=== PATIENT | male | born 1965 | race Caucasian/White ===

== ENCOUNTER 2016-03-21 09:15 | Day surgery (SDC) | payer OTHER ==
[2016-03-19 17:12] VITALS: BMI 31.7
[2016-03-21] MEDS ORDERED: MIDAZOLAM HCL 2 MG/2 ML SINGLE DOSE VIAL ONE (10:29)
[2016-03-21] MEDS ORDERED: BUPIVACAINE HCL/EPINEPHRINE/PF 30 ML VIAL IJ ONE (10:51)
[2016-03-21] MEDS ORDERED: oxyCODONE HCL 5 MG TABLET PO PRN ×2 (11:29→13:16)
[2016-03-21] MEDS ORDERED: PROMETHAZINE HCL 25 MG/1 ML VIAL IVPUSH PRN (11:29)
--- NOTE | 2016-03-21 11:51 | HP ---
Admitting History and Physical - Admission History of Present Illness: The patient is a 51 yo male who injured himself while falling on March 11. He is currently not having any tenderness although feels weakness when trying to lift objects with his RUE. No CP, SOB, fevers. History Source: Patient Limitations to Obtaining History: No Limitations - Past Medical History Cardiovascular: Yes: Other (h/o high cholesterol, not on medication). No: Deep Vein Thrombosis, HTN Pulmonary: Yes: Sleep Apnea (was recommended to have an assessment, but never completed). No: Asthma Gastrointestinal: No: Gastritis, GERD - Smoking History Smoking history: Current every day smoker Have you smoked in the past 12 months: Yes Aproximately how many cigarettes per day: 30 - Alcohol/Substance Use Hx Alcohol Use: Yes Home Medications - Allergies Allergies/Adverse Reactions: Allergies Allergy/AdvReac Type Severity Reaction Status Date / Time No Known Drug Allergies Allergy Verified 03/21/16 09:55 - Home Medications Home Medications: Ambulatory Orders NK [No Known Home Medication] 03/19/16 Review of Systems - Review of Systems Constitutional: denies: Chills, Fever Cardiovascular: denies: Chest Pain, Edema, Palpitations Respiratory: denies: No Symptoms, Cough Gastrointestinal: denies: No Symptoms, Abdominal Pain Physical Examination Vital Signs: Vital Signs Temperature 99.3 F 03/21/16 09:56 Pulse Rate 70 03/21/16 09:56 Respiratory Rate 18 03/21/16 09:56 Blood Pressure 117/80 03/21/16 09:56 O2 Sat by Pulse Oximetry (%) 97 03/21/16 09:56 Constitutional: Yes: Well Nourished, Calm Eyes: Yes: WNL, Conjunctiva Clear HENT: Yes: WNL, Atraumatic, Normocephalic Neck: Yes: WNL, Supple, Trachea Midline Cardiovascular: Yes: WNL, Regular Rate and Rhythm Respiratory: Yes: WNL, Regular, CTA Bilaterally Gastrointestinal: Yes: WNL, Normal Bowel Sounds, Soft Extremities: Yes: Deformity (RUE with deformity of biceps with flexion) Edema: No Peripheral Pulses WNL: Yes Peripheral Pulses: Left Doralis Pedis: 2+, Right Dorsalis Pedis: 2+ Neurological: Yes: WNL, Alert, Oriented ...Motor Strength: LUE, LLE, RUE (weakness with RUE flexion), RLE Psychiatric: Yes: WNL, Alert, Oriented
[2016-03-21] MEDS ORDERED: ceFAZolin SODIUM 1 GM VIAL ONE (12:04)
[2016-03-21] MEDS ORDERED: ROCURONIUM BROMIDE 50 MG/5 ML VIAL ONE (12:21)
[2016-03-21] MEDS ORDERED: ONDANSETRON 4 MG/2 ML VIAL ONE (13:13)
--- NOTE | 2016-03-21 13:21 | OP ---
Operative Note - Note: Operative Date: 03/21/16 Pre-Operative Diagnosis: right distal biceps tear Operation: open right distal biceps repair Findings: Distal Biceps tear Implants: 2 Mitek double loaded suture anchors Post-Operative Diagnosis: Same as Pre-op Surgeon: Fransisco White Anesthesia: General
--- NOTE | 2016-03-21 13:21 | DS ---
Physical Examination Vital Signs: Vital Signs Temperature 99.3 F 03/21/16 09:56 Pulse Rate 70 03/21/16 09:56 Respiratory Rate 18 03/21/16 09:56 Blood Pressure 117/80 03/21/16 09:56 O2 Sat by Pulse Oximetry (%) 97 03/21/16 09:56 Discharge Summary Reason For Visit: RIGHT DISTAL BICEPS RUPTURE Condition: Good - Instructions Diet, Activity, Other Instructions: Do not use the right arm to lift or carry anything. Continue to use the sling at all times. Do not get the splint/cast wet. You should move your fingers often to stimulate blood flow. Try to use tylenol or oxycodone for pain. Avoid NSAIDs such as Motrin, Ibuorofen, Alleve, Naprosyn, etc. Call for appointment. I want to see you in approximately two weeks. Disposition: HOME - Home Medications Comprehensive Discharge Medication List: Ambulatory Orders NK [No Known Home Medication] 03/19/16
[2016-03-21] MEDS ORDERED: ONDANSETRON 4 MG/2 ML VIAL IVPUSH ONE (13:40)
--- NOTE | 2016-03-21 14:01 | SURG ---
Surgery Actuarial Manager Note Actuarial Manager: Natasha Adams PA-C Date of Service: 03/21/16 Diagnosis: right distal biceps tear Procedure: open right distal biceps repair I was present for the entirety of the operative procedure. For further detail, please refer to operative report. Visit type - Case Type Case Type: Scheduled Admission - Emergency Emergency Visit: No - New patient This patient is new to me today: Yes Date on this admission: 03/21/16 - Critical Care Critical Care patient: No
[2016-03-21 14:34] VITALS: TEMP 98.2
[2016-03-21] MEDS ORDERED: oxyCODONE HCL 5 MG TABLET ONE (14:35)
[2016-03-21 15:29] VITALS: BP 120/84; PULSE 74
== END 2016-03-21 15:15 | disposition home or self-care (01) ==
LOC: FASU 09:15
PROVIDERS: ATTEND Orthopaedic Surgery
PROC: 0LM30ZZ Reattachment of Right Upper Arm Tendon, Open Approach (ICD-10-PCS; principal; 2016-03-21 12:15)
DX: S46.211A Strain of muscle, fascia and tendon of other parts of biceps, right arm, initial encounter (principal); W19.XXXA Unspecified fall, initial encounter; Y93.9 Activity, unspecified; Y92.9 Unspecified place or not applicable
CPT/HCPCS: 94760